=== PATIENT | male | born 1965 | race Caucasian/White ===

== ENCOUNTER 2025-06-16 17:02 | Emergency (ER) | payer BC ==
[2025-06-16 18:08] LABS: BASOPHILS PERCENT AUTO 0.4 % (0.0-1.0); EOSINOPHILS PERCENT AUTO 1.7 % (1.0-3.0); LYMPHOCYTES PERCENT AUTO 16.5 % (20.5-50.1); MONOCYTES PERCENT AUTO 13.3 % (2-8); NEUTROPHILS PERCENT AUTO 68.1 % (42.2-75.2); PLATELET COUNT,PLT 238 10^3/uL (150-450); RED BLOOD CELL COUNT 4.68 10^6/uL (4.6-6.2); WHITE BLOOD CELL COUNT,WBC 9.0 10^3/uL (5.0-10.0)
[2025-06-16 18:30] LABS: A/G RATIO 1.2; ALANINE AMINOTRANSFERASE,ALT 29.0 U/L (16-63); ASPARTATE AMNIOTRANSFERASE,AST 21.0 U/L (15-37); BILIRUBIN TOTAL 0.4 mg/dL (0.2-1.0); BLOOD UREA NITROGEN,BUN 11.0 mg/dL (7-18); CARBON DIOXIDE,CO2 31.0 mmol/L (21-32); CHLORIDE,CL 101.0 mmol/L (98-107); CREATININE 0.89 mg/dL (0.70-1.30); EST CRCL DRUG DOSING (CG) 83.55 mL/min; ESTIMATED GFR 99.0 mL/min (>=60); GLUCOSE RANDOM 127.0 mg/dL (70-99); POTASSIUM,K 4.0 mmol/L (3.5-5.1); PROTEIN TOTAL,TP 7.2 g/dL (6.4-8.2); SODIUM,NA 138.0 mmol/L (136-145)
[2025-06-16 18:33] LABS: LACTIC ACID 1.2 mmol/L (0.4-2.0)
[2025-06-16 20:27] LABS: APPEARANCE,URINE CLEAR (CLEAR); GLUCOSE,URINE NEGATIVE (NEGATIVE); OCCULT BLOOD,URINE NEGATIVE (NEGATIVE)
== END 2025-06-16 21:00 | disposition home or self-care (01) ==
LOC: DL.ED 17:02
DX: J06.9 Acute upper respiratory infection, unspecified (principal); E86.0 Dehydration; L03.213 Periorbital cellulitis; H10.9 Unspecified conjunctivitis
CPT/HCPCS: 36415; 71045; 80053; 81003; 83605; 85025; 96360; 99285; J3535; J7030; A9270-GY